=== PATIENT | female | born 1960 | race African-American/Black ===

== ENCOUNTER → 2017-01-18 | Outpatient (CLI) | payer OTHER ==
[2014-09-04 22:30] VITALS: BP 108/60
[~2017-01-18] MED LIST: ALBU8.5H6 IH; CALC600T4 PO; CHOL200044 PO; MULT-246 PO; other
--- NOTE | 2017-01-19 11:31 | KCIC ---
DATE: 01/18/2017 EXAM: DIGITAL DIAGNOSTIC RT, BREAST RIGHT HISTORY: Right breast thickening COMPARISON: 06/03/2016 FINDINGS: Breast Density: SCATTERED The breast parenchyma shows scattered fibroglandular densities. Breast parenchyma level B. There are no dominant suspicious masses, suspicious microcalcifications or evidence of architectural distortion. Targeted ultrasound the right breast demonstrates a 1.3 cm echogenicity at the 4 :00 position 9 cm of the nipple without vascular flow. IMPRESSION: 1.3 cm echogenicity identified 4:00 position 9 cm from the nipple without vascular flow probably scarring, however this is not clearly visualized on the mammogram. Probably benign findings. BI-RADS CATEGORY: 3 PROBABLE BENIGN-SHORT TERM F/U RECOMMENDED FOLLOW-UP: Ultrasound in 6 months PQRS compliance statement: Patient information was entered into a reminder system with a target due date 07/20/2017 for the next mammogram. Mammography is a sensitive method for finding small breast cancers, but it does not detect them all and is not a substitute for careful clinical examination. A negative mammogram does not negate a clinically suspicious finding and should not result in delay in biopsying a clinically suspicious abnormality. "Our facility is accredited by the [employer] Mammography Program." ISREALD
== END | disposition home or self-care (01) ==
LOC: KCIC MAMMO 09:59
PROVIDERS: ATTEND Obstetrics & Gynecology
DX: R92.8 Other abnormal and inconclusive findings on diagnostic imaging of breast (principal)
CPT/HCPCS: 76641; G0206; 77065

== ENCOUNTER → 2017-03-17 | Outpatient (CLI) | payer OTHER ==
[2014-09-04 22:30] VITALS: BP 108/60
[~2017-03-17] MED LIST changes: +REGADENOSON 0.4 MG/5 ML DISP.SYRIN. IV ONE
--- NOTE | 2017-03-18 12:39 | RAD ---
APPROVED REPORT Test Type: Pharmacological Stress Nurse/Tech: Luanne Champagne R.N. Test Indications: exertional dyspnea Cardiac History: Family history, Hypertension Medications: See Electronic Medical Record Medical History: See Electronic Medical Record Resting ECG: NSR Resting Heart Rate: 67 bpm Resting Blood Pressure: 133/75mmHg Pretest Chest Pain: No chest pain Nurse/Tech Notes S1S2, lungs sound clear Consent: The procedure was explained to the patient in lay terms. Informed consent was witnessed. Pérez eout was entered into [employer]. History and Stress Test performed by Luanne Champagne R.N. Pharm. Details Pharmacologic stress testing was performed using 0.4mg per 5ml of regadenoson given intravenously ove r 7-10 seconds. Stress Symptoms Dyspnea POST EXERCISE Reason for Termination: Infusion complete Max HR: 101 bpm Max Blood Pressure: 137/66mmHg Blood Pressure response to exercise: Normal blood pressure response during stress. Chest Pain: No. Arrhythmia: Yes. occ PVC ST Change: No. INTERPRETATION Stress EKG Conclusion: Baseline EKG showed sinus rhythm. No ischemic changes at peak stress. No arr hythmias. Imaging Protocol IMAGE PROTOCOL: Rest Tc-99m/stress Tc-99m 2 days Rest: Stress: Viability: Radiopharm.Tc99m IakjqjvjoEw70f Sestamibi Dose33.4mCi 32mCi Img Date 03/17/2017 03/18/2017 Rest Admin Site:IV - Right AntecubitalAdministrator:PAVEL Castillo Stress Admin Site: IV - Right AntecubitalAdministrator: Ross Orozco, RT (R)(N) STRESS DATA End Diast. Vol.110.0mlAv. Heart Rate74.0bpm End Syst. Vol.34.0mlCO Index BSA0.0L/min Myocardial Bggv235.0gEject. Jbmanggs18.0% Stress Rates Pk. Fill Rate3.09EDV/secLVtime Pk. Fill 210.33msec Pk. Empty Rate3.21ESV/secLVtime Pk. Uluvc290.17msec 08/03 Pk. Fill1.45EDV/sec Stress Scores Regional WT0.00Summed WT0.00 Regional WM0.00Summed WM1.00 Study quality was good. Left Ventricular size was Normal at Rest and Stress. Lung uptake was Normal. Left Ventricular ejection fraction is 69%. The rest and stress images show normal perfusion, normal contraction and thickening. LV Perf. Quant 17 Seg. SSS1.00 17 Seg. SRS0.00 17 Seg. SDS1.00 Stress Defect Extent (% LAD)0.00Rest Defect Extent (% LAD)0.00Rev. Defect Extent (% LAD)0.00 Stress Defect Extent (% LCX) 0.00Rest Defect Extent (% LCX)0.00Rev. Defect Extent (% LCX)0.00 Stress Defect Extent (% RCA)0.00Rest Defect Extent (% RCA)0.00Rev. Defect Extent (% RCA)0.00 Stress Defect Extent (% WALT)0.00Rest Defect Extent (% WALT)0.00Rev. Defect Extent (% WALT)0.00 Conclusion 1. Regadenoson cardioisotope stress test did not show any evidence of ischemia or infarct. 2. Normal left ventricular systolic function with ejection fraction calculated at 69%. 3. Low risk for cardiac events.
--- NOTE | 2017-03-18 12:49 | CARD ---
APPROVED REPORT EXAM: Two-dimensional and M-mode echocardiogram with Doppler and color Doppler. Other Information Quality : Good INDICATION Dyspnea 2D DIMENSIONS RVDd2.2 (2.9-3.5cm)Left Atrium(2D)3.0 (1.6-4.0cm) IVSd1.1 (0.7-1.1cm)Aortic Root(2D)2.9 (2.0-3.7cm) LVDd4.7 (3.9-5.9cm)LVOT Diameter2.2 (1.8-2.4cm) PWd1.1 (0.7-1.1cm)LVDs2.9 (2.5-4.0cm) FS (%) 30.0 %SV70.8 ml LVEF(%)60.0 (>50%) Aortic Valve AoV Peak King.149.6cm/sAoV VTI33.7cm AO Peak GR.9.0mmHgLVOT Peak King.105.3cm/s AO Mean GR.5mmHgAVA (VMAX)2.59cm2 SCAR (VTI)2.70cm2 Mitral Valve MV E Ddzqitxh36.4cm/sMV DECEL KECS670nz MV A Pibbeizk14.7cm/sE/A Ratio0.9 Tricuspid Valve TR P. Jyxyijsr122zu/sRAP JEFNRLQW9fkCm TR Peak Gr.27irItDCXF46qcEe Pulmonary Vein S1 Mmbazata97.6cm/sD2 Sudzxibp90.7cm/s LEFT VENTRICLE The left ventricle is normal size. There is normal left ventricular wall thickness. The left ventricu lar systolic function is normal. The Ejection Fraction is 55-60%. There is normal LV segmental wall m otion. Transmitral Doppler flow pattern is Grade I-abnormal relaxation pattern. RIGHT VENTRICLE The right ventricle is normal size. The right ventricular systolic function is normal. ATRIA The left atrium size is normal. The right atrium size is normal. There is a small PFO noted on Dopple r imaging, agitated contrast saline was not performed on this study. AORTIC VALVE The aortic valve is calcified but opens well. Doppler and Color Flow revealed no significant aortic r egurgitation. There is no significant aortic valvular stenosis. MITRAL VALVE The mitral valve is calcified but opens well. There is no evidence of mitral valve prolapse. There is no mitral valve stenosis. Doppler and Color-flow revealed trace mitral regurgitation. TRICUSPID VALVE The tricuspid valve is normal in structure and function. Doppler and Color Flow revealed physiologica l tricuspid regurgitation. The PA pressure was estimated at 15 mmHg. There is no tricuspid valve sten osis. PULMONIC VALVE The pulmonary valve is normal in structure and function. Doppler and Color Flow revealed trace pulmon ic valvular regurgitation. There is no pulmonic valvular stenosis. GREAT VESSELS The aortic root is normal in size. The ascending aorta is normal in size. The IVC is normal in size a nd collapses >50% with inspiration. PERICARDIAL EFFUSION There is no evidence of significant pericardial effusion. Critical Notification Critical Value: No <Conclusion> The left ventricular systolic function is normal. The Ejection Fraction is 55-60%. There is normal LV segmental wall motion. Doppler and Color-flow revealed trace mitral regurgitation. There is no evidence of significant pericardial effusion.
--- NOTE | 2017-03-18 14:28 | RAD ---
APPROVED REPORT Patient Location : OUT-PATIENT Indications Lower Extremity Edema : Bilateral Perforators Thigh Perforators Calf Perforators Right: cm up from medial heel 35cm back from the anterior border of tibia 12 diameter 0.4 CMmm. Findings The left great saphenous vein measures approximately 5 mm and has a reflux time of 2 seconds. The lef t lesser saphenous vein does not show any evidence of reflux. The right great saphenous vein measures approximately 5.5 mm and has a reflux time of 1.4 seconds. Th e right lesser saphenous vein does not show any evidence of reflux. There is one calf supervisor film processing note d on the right side at approximately 35 cm up and 12 cm back. Of note, quantitatively there is more reflux on the left leg compared to the right although the perfo rators noted on the right side. Critical Notification Critical Value: No <Conclusion> 1.Positive for bilateral great saphenous vein reflux.
== END | disposition home or self-care (01) ==
LOC: NM 08:16
PROVIDERS: ATTEND Internal Medicine Cardiovascular Disease
DX: I07.1 Rheumatic tricuspid insufficiency (principal); R06.09 Other forms of dyspnea; R60.0 Localized edema
CPT/HCPCS: 78452; 96374; 96375; A9500; 93017; 93306; 93970; 96376; J2785

== ENCOUNTER → 2017-07-27 | Outpatient (CLI) | payer OTHER ==
[2014-09-04 22:30] VITALS: BP 108/60
[~2017-07-27] MED LIST changes: -REGADENOSON 0.4 MG/5 ML DISP.SYRIN. IV ONE
--- NOTE | 2017-07-27 14:03 | KCIC ---
Bilateral digital diagnostic mammogram, limited right breast ultrasound History: 57 year-old female returns for short-term follow-up of a probably benign finding in the right breast, originally palpated on previous clinical breast exam. Patient has no current breast concerns other than occasional pain which has improved. Comparison: January 18, 2017, June 03, 2016 Findings: Breast Tissue Density A : The breasts are almost entirely fatty. Bilateral digital mammogram images are obtained with CAD. No suspicious masses, architectural distortion, or grouped microcalcifications are identified. Targeted sonography of the right breast is performed, with radial and antiradial images obtained of the previous area of concern. In the 4:00 position 9 cm from the nipple, no suspicious solid or cystic mass is seen. Normal tissue planes are maintained. Previously seen area of hyperechogenicity is not seen on today's exam. Impression: No suspicious mammographic or sonographic findings. Recommend bilateral screening mammography in one year. Findings and recommendation were relayed to the patient by the cath lab radiological technologist. BI-RADS Category 1: Negative. Patient information was entered into a reminder system with a target due date for the next mammogram. Electronically signed by: Lorraine Dowell MD (07/27/2017 1:59 PM) [id number]
--- NOTE | 2017-07-27 14:03 | KCIC ---
Bilateral digital diagnostic mammogram, limited right breast ultrasound History: 57 year-old female returns for short-term follow-up of a probably benign finding in the right breast, originally palpated on previous clinical breast exam. Patient has no current breast concerns other than occasional pain which has improved. Comparison: January 18, 2017, June 03, 2016 Findings: Breast Tissue Density A : The breasts are almost entirely fatty. Bilateral digital mammogram images are obtained with CAD. No suspicious masses, architectural distortion, or grouped microcalcifications are identified. Targeted sonography of the right breast is performed, with radial and antiradial images obtained of the previous area of concern. In the 4:00 position 9 cm from the nipple, no suspicious solid or cystic mass is seen. Normal tissue planes are maintained. Previously seen area of hyperechogenicity is not seen on today's exam. Impression: No suspicious mammographic or sonographic findings. Recommend bilateral screening mammography in one year. Findings and recommendation were relayed to the patient by the office technologist. BI-RADS Category 1: Negative. Patient information was entered into a reminder system with a target due date for the next mammogram. Electronically signed by: Lorraine Dowell MD (07/27/2017 1:59 PM) [facility]
--- NOTE | 2017-07-27 14:06 | KCIC ---
CHEST PA LATERAL History: Endometrial cancer 2015. Sinus drainage. Comparison: Two-view chest June 21, 2016. Findings: The cardiomediastinal silhouette is normal. Bilateral hilar prominence is unchanged. Minimal scarring or discoid atelectasis in the peripheral left lower lung is stable. Mild atelectasis or scarring in the right lower lobe is unchanged allowing for differences in inspiration. No pleural effusion or pneumothorax is seen. There is no acute bone abnormality. IMPRESSION: Unchanged atelectasis or scarring in the right lower lobe and the peripheral left lower lung. Electronically signed by: Rl Singleton MD (07/27/2017 2:03 PM) [id number]
== END | disposition home or self-care (01) ==
LOC: KCIC MAMMO 13:09
PROVIDERS: ATTEND Obstetrics & Gynecology
DX: C54.1 Malignant neoplasm of endometrium (principal); N64.4 Mastodynia; J98.11 Atelectasis; J98.4 Other disorders of lung
CPT/HCPCS: 71020; 76641; G0204; 77066

== ENCOUNTER → 2018-07-31 | Outpatient (CLI) | payer OTHER ==
[2014-09-04 22:30] VITALS: BP 108/60
--- NOTE | 2018-07-31 16:07 | KCIC ---
EXAM: PA and Lateral Views of the Chest DATE: 07/31/2018 3:30 PM INDICATION: OVARIAN CANCER COMPARISON: 07/27/17 FINDINGS: The heart is not enlarged. Mild right suprahilar opacities is now seen, this can be further assessed by CT. Linear opacities in the bilateral lung bases likely atelectasis/scarring. No lobar consolidation. No pleural effusion or pneumothorax. IMPRESSION: 1. Prominent right suprahilar opacity is now seen, this can be further assessed by CT. 2. Linear opacities in the bilateral lung bases likely atelectasis/scarring. No lobar consolidation. Electronically signed by: Carlos Eduardo Raymond MD (07/31/2018 4:03 PM) [facility]
--- NOTE | 2018-08-02 09:42 | KCIC ---
History: Routine screening. Technique: Bilateral digital mammographic routine views were obtained with CAD - computer aided detection. Comparison: July 27, 2017. Findings: Breast Tissue Density B :The breast tissue is composed of mixed fatty and fibroglandular tissue. There are no suspicious masses, microcalcifications or areas of architectural distortion. Impression: Negative mammogram. BI-RADS Category 1: Negative. Normal interval followup. A mammogram does not have 100% sensitivity and therefore a negative imaging study should not delay further work up of a suspicious abnormality. The patient will receive a letter with the results in the mail. Patient information is entered into the reminder system with a target due date for the next screening mammogram. The patient will receive a reminder. "Our facility is accredited by the [employer] Mammography Program." Electronically signed by: Javi Andrews III, MD (08/02/2018 9:38 AM) [facility]
== END | disposition home or self-care (01) ==
LOC: KCIC MAMMO 14:43
PROVIDERS: ATTEND Obstetrics & Gynecology
DX: Z12.31 Encounter for screening mammogram for malignant neoplasm of breast (principal); R91.8 Other nonspecific abnormal finding of lung field; Z85.43 Personal history of malignant neoplasm of ovary
CPT/HCPCS: 71046; 77067

== ENCOUNTER → 2018-10-04 | Outpatient (CLI) | payer OTHER ==
[2014-09-04 22:30] VITALS: BP 108/60
[~2018-10-04] MED LIST changes: +IOHEXOL 300 MG/ML 100ML VIAL. IV ONE
--- NOTE | 2018-10-04 13:34 | KCIC ---
PQRS Compliance statement: One or more of the following individualized dose reduction techniques were utilized for this examination: 1. Automated exposure control. 2. Adjustment of the mA and/or kV according to patient size. 3. Use of iterative reconstruction technique. Indication:Lung nodule. History of uterine cancer. TECHNIQUE: CT chest with IV contrast with multiplanar reformats. COMPARISON:None FINDINGS: Heart is normal in size. No pericardial or effusion. Clear neck base. No enlarged axillary, mediastinal or hilar adenopathy. Central airways are patent. Scarring or subsegmental atelectasis seen in the bilateral lung bases and in the right middle lobe. 3 mm nodular opacity abutting the right major fissure (series 2 image 72). Visualized sections through the liver, spleen, pancreas, adrenals and kidneys within normal limits. Status post cholecystectomy. No suspicious bony lesion. IMPRESSION: 1. Scattered subsegmental atelectasis or scarring. 2. Solitary 3 mm nodular opacity adjacent to the right major fissure. According to Fleischner side recommendation, no further follow-up needed. Future follow-up depending on patient's risk factors. Electronically signed by: Christo Field DO (10/04/2018 1:31 PM) [id number]
== END | disposition home or self-care (01) ==
LOC: KCIC CT 12:22
PROVIDERS: ATTEND Internal Medicine Pulmonary Disease
DX: R91.1 Solitary pulmonary nodule (principal); Z90.49 Acquired absence of other specified parts of digestive tract; Z85.42 Personal history of malignant neoplasm of other parts of uterus
CPT/HCPCS: 71260; Q9967

== ENCOUNTER → 2019-03-01 | Outpatient (CLI) | payer OTHER ==
[2014-09-04 22:30] VITALS: BP 108/60
[~2019-03-01] MED LIST changes: -IOHEXOL 300 MG/ML 100ML VIAL. IV ONE
--- NOTE | 2019-03-01 20:25 | KCIC ---
Left breast ultrasound: Reason for examination: Left breast pain at the 3:00 position. Comparison is made to mammographic exam dated 07/31/2018. Ultrasound examination of the left breast was performed with attention to the lateral breast. No discrete cystic or solid nodules are seen within the predominantly fatty parenchyma. No abnormal appearing lymph nodes are seen in the axilla. IMPRESSION: No focal abnormalities evident in the left breast. Recommend routine mammographic follow-up. BI-RADS Category 1: Negative. "Our facility is accredited by the [employer] Mammography Program." This patient's information has been entered into a reminder system for the patient to be notified with the results of her examination and a target date for the next mammogram. Electronically signed by: Paula Mark MD (03/01/2019 8:22 PM) [facility]
== END | disposition home or self-care (01) ==
LOC: KCIC US 12:57
PROVIDERS: ATTEND Obstetrics & Gynecology
DX: N64.4 Mastodynia (principal)
CPT/HCPCS: 76641

== ENCOUNTER → 2019-06-20 | Outpatient (CLI) | payer OTHER ==
[2014-09-04 22:30] VITALS: BP 108/60
--- NOTE | 2019-06-20 15:27 | CARD ---
MR#: [id number] Date of Study: 06/20/2019 Ordering Physician: SAYRA CLEANING, Referring Physician: Da VEE: Jessi Carreno APPROVED REPORT EXAM: Two-dimensional and M-mode echocardiogram with Doppler and color Doppler. Other Information Quality : AverageHR: 93bpm INDICATION Hypertension/HCVD 2D DIMENSIONS RVDd2.1 (2.9-3.5cm)Left Atrium(2D)3.4 (1.6-4.0cm) IVSd0.8 (0.7-1.1cm)Aortic Root(2D)2.6 (2.0-3.7cm) LVDd4.3 (3.9-5.9cm)LVOT Diameter2.1 (1.8-2.4cm) PWd0.7 (0.7-1.1cm)LVDs3.2 (2.5-4.0cm) FS (%) 25.3 %SV42.7 ml LVEF(%)50.2 (>50%) Aortic Valve AoV Peak King.181.7cm/sAoV VTI34.9cm AO Peak GR.13.2mmHgLVOT Peak King.106.1cm/s LVOT VTI 23.42cmAO Mean GR.8mmHg SCAR (VMAX)1.67nb6INN (VTI)2.26cm2 Mitral Valve MV E Enemsdsj39.6cm/sMV DECEL JMAQ444vd MV A Pumfbfhd38.0cm/sMV MSJ16ko E/A Ratio0.7MVA (PHT)3.13cm2 TDI E/Lateral E'8.8E/Medial E'10.3 Pulmonary Valve PV Peak Eubglesw731.9cm/sPV Peak Grad.5mmHg Tricuspid Valve TR P. Ynnwusrg864ej/sRAP PBZEQLXZ8bxRd TR Peak Gr.18myVkDCXD16fwYh Pulmonary Vein S1 Ehyzkcxv93.3cm/sD2 Wbsjpncw56.4cm/s PVa ogxpoajz891kkaj LEFT VENTRICLE The left ventricle is normal size. There is normal left ventricular wall thickness. The left ventricu lar systolic function is normal. The Ejection Fraction is 55-60%. There is normal LV segmental wall m otion. Transmitral Doppler flow pattern is Grade I-abnormal relaxation pattern. RIGHT VENTRICLE The right ventricle cavity is small. The right ventricular systolic function is normal. ATRIA The left atrium size is normal. The right atrium is borderline dilated. Eustachian valve is noted in the right atrium. The interatrial septum is mildly aneurysmal without flow across with color. AORTIC VALVE The aortic valve is thickened but opens well. Doppler and Color Flow revealed no significant aortic r egurgitation. There is no significant aortic valvular stenosis. MITRAL VALVE The mitral valve is thickened but opens well. There is no evidence of mitral valve prolapse. There is no mitral valve stenosis. Doppler and Color-flow revealed trace mitral regurgitation. TRICUSPID VALVE The tricuspid valve is normal in structure and function. Doppler and Color Flow revealed mild tricusp id regurgitation with an estimated PAP of 36 mmHg. There is no tricuspid valve stenosis. PULMONIC VALVE The pulmonary valve is normal in structure and function. Doppler and Color Flow revealed no pulmonic valvular regurgitation. GREAT VESSELS The aortic root is normal in size. The ascending aorta is normal in size. The IVC is dilated and aleisha apses >50% with inspiration. PERICARDIAL EFFUSION There is no pleural effusion. There is no evidence of significant pericardial effusion. Critical Notification Critical Value: No <Conclusion> The left ventricular systolic function is normal. The Ejection Fraction is 55-60%. There is normal LV segmental wall motion. Transmitral Doppler flow pattern is Grade I-abnormal relaxation pattern. Trace mitral regurgitation. Mild tricuspid regurgitation with an estimated PAP of 36 mmHg. There is no evidence of significant pericardial effusion. Signed by : Sayra Cleaning, Electronically Approved : 06/20/2019 15:26:50
== END | disposition home or self-care (01) ==
LOC: ECHO 14:10
PROVIDERS: ATTEND Internal Medicine Cardiovascular Disease
DX: I07.1 Rheumatic tricuspid insufficiency (principal); I10 Essential (primary) hypertension
CPT/HCPCS: 93306

== ENCOUNTER → 2019-08-08 | Outpatient (CLI) | payer OTHER ==
[2014-09-04 22:30] VITALS: BP 108/60
--- NOTE | 2019-08-08 12:04 | KCIC ---
Bilateral digital screening mammograms: Reason for examination: Routine screening. History of bilateral breast reduction. Flores and scars on right breast. Comparison is made to previous studies dated 07/31/2018 and 07/27/2017. Interpretation is made with the benefit of CAD. The skin and nipples show no abnormalities. No abnormal lymph nodes are seen. The breast parenchyma is predominantly fatty. (Breast density: Category A.) There are no dominant masses, suspicious calcifications or architectural distortions. A few benign calcifications are seen. Impression: No evidence of malignancy. Recommend routine screening. BI-RADS Category 2: Benign. "Our facility is accredited by the [employer] Mammography Program." This patient's information has been entered into a reminder system for the patient to be notified with the results of her examination and a target date for the next mammogram. Electronically signed by: Paula Mark MD (08/08/2019 12:01 PM) [facility]
== END | disposition home or self-care (01) ==
LOC: KCIC MAMMO 09:55
PROVIDERS: ATTEND Obstetrics & Gynecology
DX: Z12.31 Encounter for screening mammogram for malignant neoplasm of breast (principal); N64.89 Other specified disorders of breast
CPT/HCPCS: 77067

== ENCOUNTER → 2019-09-07 | Outpatient (CLI) | payer OTHER ==
[2014-09-04 22:30] VITALS: BP 108/60
--- NOTE | 2019-09-07 10:36 | KCIC ---
Chest radiograph 09/07/2019 12:00 AM INDICATION: Endometrial cancer COMPARISON: CT chest 10/04/2018, chest radiograph 07/31/2018 TECHNIQUE: Frontal and lateral views of the chest are provided. FINDINGS: The cardiomediastinal silhouette is within normal limits. There are no pleural effusions. There is no pulmonary vascular congestion. There is no pneumothorax. Mild interstitial changes are noted at the lung bases bilaterally. No suspicious solid noncalcified pulmonary nodule identified. No significant osseous abnormality is identified. IMPRESSION: Mild bibasilar interstitial changes may represent subsegmental atelectasis versus scarring. No suspicious pulmonary mass is visualized. Electronically signed by: Jing Mabry MD (09/07/2019 10:33 AM) [id number]
== END | disposition home or self-care (01) ==
LOC: KCIC 09:56
PROVIDERS: ATTEND Obstetrics & Gynecology
DX: Z08 Encounter for follow-up examination after completed treatment for malignant neoplasm (principal); Z85.42 Personal history of malignant neoplasm of other parts of uterus
CPT/HCPCS: 71046

== ENCOUNTER → 2020-08-13 | Outpatient (CLI) | payer OTHER ==
[2014-09-04 22:30] VITALS: BP 108/60
[~2020-08-13] MED LIST changes: -CALC600T4 PO; +CALC600T60 PO
--- NOTE | 2020-08-13 14:53 | CARD ---
MR#: [id number] Date of Study: 08/13/2020 Ordering Physician: SAYRA AKINS, Referring Physician: SAYRA AKINS Tech: Stephie Quinones RDCS APPROVED REPORT EXAM: Two-dimensional and M-mode echocardiogram with Doppler and color Doppler. Other Information Quality : Good INDICATION Hypertension/HCVD 2D DIMENSIONS RVDd2.4 (2.9-3.5cm)Left Atrium(2D)3.2 (1.6-4.0cm) IVSd0.9 (0.7-1.1cm)Aortic Root(2D)2.2 (2.0-3.7cm) LVDd4.4 (3.9-5.9cm)LVOT Diameter2.2 (1.8-2.4cm) PWd1.1 (0.7-1.1cm)LVDs3.2 (2.5-4.0cm) FS (%) 27.0 %SV45.7 ml LVEF(%)52.9 (>50%) Aortic Valve AoV Peak King.161.5cm/sAoV VTI34.6cm AO Peak GR.10.4mmHgLVOT Peak King.111.0cm/s AO Mean GR.6mmHgAVA (VMAX)2.60cm2 SCAR (VTI)2.70cm2 Mitral Valve MV E Stewrben82.3cm/sMV DECEL BEVE381ae MV A Xcnkncsm70.0cm/sE/A Ratio0.9 Tricuspid Valve TR P. Ojgzuixd905kj/sRAP GICFFEBA51bvGy TR Peak Gr.08fdVzYIDQ44gxVo Pulmonary Vein S1 Zwlhzgoa57.0cm/sD2 Xtlvigci32.8cm/s LEFT VENTRICLE The left ventricle is normal size. There is mild to moderate concentric left ventricular hypertrophy. Left ventricle systolic function is low normal. The Ejection Fraction is 50-55%. There is normal LV segmental wall motion. Transmitral Doppler flow pattern is Grade I-abnormal relaxation pattern. RIGHT VENTRICLE The right ventricle is normal size. The right ventricular systolic function is normal. ATRIA The left atrium is moderately dilated. The right atrium is mildly dilated. Cannot rule out small atri al level defect on color doppler imaging. Consider further evaluation based on clinical indication. AORTIC VALVE The aortic valve is calcified but opens well. Doppler and Color Flow revealed trace aortic regurgitat ion. There is no significant aortic valvular stenosis. MITRAL VALVE The mitral valve is calcified but opens well. Mitral annular calcification is mild. There is no evide nce of mitral valve prolapse. There is no mitral valve stenosis. Doppler and Color-flow revealed mild mitral regurgitation. TRICUSPID VALVE The tricuspid valve is normal in structure and function. Doppler and Color Flow revealed mild tricusp id regurgitation. There is moderate-severe pulmonary hypertension. The PA pressure was estimated at 6 0 mmHg. There is no tricuspid valve stenosis. PULMONIC VALVE The pulmonic valve is not well visualized. Doppler and Color Flow revealed trace pulmonic valvular re gurgitation. There is no pulmonic valvular stenosis. GREAT VESSELS The aortic root is normal in size. The ascending aorta is not well seen. The IVC is dilated and colla pses <50% with inspiration. PERICARDIAL EFFUSION There is no evidence of significant pericardial effusion. Critical Notification Critical Value: No <Conclusion> Left ventricle systolic function is low normal. The Ejection Fraction is 50-55%. There is normal LV segmental wall motion. Cannot rule out small atrial level defect on color doppler imaging. Consider further evaluation based on clinical indication. Doppler and Color Flow revealed mild tricuspid regurgitation. There is moderate-severe pulmonary hype rtension. The PA pressure was estimated at 60 mmHg. The IVC is dilated and collapses <50% with inspiration suggestive of right sided volume overload. Signed by : [place], Electronically Approved : 08/13/2020 14:52:40
== END ==
LOC: ECHO 13:10
PROVIDERS: ATTEND Internal Medicine Cardiovascular Disease
DX: I08.3 Combined rheumatic disorders of mitral, aortic and tricuspid valves (principal); I11.9 Hypertensive heart disease without heart failure
CPT/HCPCS: 93306

== ENCOUNTER → 2020-09-15 | Outpatient (CLI) | payer OTHER ==
[2014-09-04 22:30] VITALS: BP 108/60
[~2020-09-15] MED LIST changes: +CALC600T6 PO; -CALC600T60 PO
--- NOTE | 2020-09-15 14:12 | KCIC ---
Bilateral digital screening mammograms: Reason for examination: Routine screening. Comparison is made to previous studies dated 08/08/2019 and 07/31/2018. Interpretation was made with the benefit of CAD. The skin and nipples show no abnormalities. No abnormal lymph nodes are seen. The breast parenchyma i s predominantly fatty. (Breast density: Category A.) There are no dominant masses, suspicious calcifi cations or architectural distortions. A few benign calcifications are again seen. Impression: No evidence of malignancy. Recommend routine screening. BI-RADS Category 2: Benign. "Our facility is accredited by the [employer] Mammography [employer]." This patient's information has been entered into a reminder system for the patient to be notified wit h the results of her examination and a target date for the next mammogram. Electronically signed by: Paula Mark MD (09/15/2020 2:09 PM) [email or web address]
--- NOTE | 2020-09-15 15:36 | KCIC ---
EXAM: Chest, 2 views. HISTORY: Ovarian cancer. COMPARISON: 09/07/2019 FINDINGS: 2 views of the chest are obtained. There are stable bilateral linear infrahilar opacity lik hao due to atelectasis or scarring. There is no consolidation, pleural effusion or pneumothorax. Ther e is a stable cardiac silhouette. There is stable right apical pleural thickening likely due to scarr ing. IMPRESSION: No acute pulmonary finding. Electronically signed by: Cynthia Medeiros MD (09/15/2020 3:14 PM) [id number]
== END ==
LOC: KCIC MAMMO 13:06
PROVIDERS: ATTEND Obstetrics & Gynecology
DX: Z12.31 Encounter for screening mammogram for malignant neoplasm of breast (principal); Z85.43 Personal history of malignant neoplasm of ovary
CPT/HCPCS: 71046; 77067

== ENCOUNTER → 2021-08-19 | Outpatient (CLI) | payer OTHER ==
[2014-09-04 22:30] VITALS: BP 108/60
[~2021-08-19] MED LIST changes: -CALC600T6 PO; +CALC600T60 PO
--- NOTE | 2021-08-21 12:42 | CARD ---
MR#: [id number] Date of Study: 08/19/2021 Ordering Physician: SAYRA AKINS, Referring Physician: SAYRA AKINS Tech: Serene Gray [facility] APPROVED REPORT EXAM: Two-dimensional and M-mode echocardiogram with Doppler and color Doppler. Other Information Quality : Technically LimitedHR: 94bpm Rhythm : NSR INDICATION Murmur RISK FACTORS Hypertension Obesity Diabetes 2D DIMENSIONS Left Atrium(2D)3.0 (1.6-4.0cm)IVSd1.1 (0.7-1.1cm) Aortic Root(2D)3.0 (2.0-3.7cm)LVDd4.3 (3.9-5.9cm) LVOT Diameter2.1 (1.8-2.4cm)PWd1.1 (0.7-1.1cm) LVDs2.9 (2.5-4.0cm)FS (%) 31.1 % SV48.2 ml Aortic Valve AoV Peak King.163.4cm/sAoV VTI31.7cm AO Peak GR.10.7mmHgLVOT Peak King.119.6cm/s AO Mean GR.5mmHgAVA (VMAX)2.60cm2 Tricuspid Valve TR P. Sylrvhwo422je/sTR Peak Gr.35mmHg LEFT VENTRICLE The Left Ventricle is mildly dilated. There is mild concentric left ventricular hypertrophy. The left ventricular systolic function is low normal. LV ejection fraction estimated at 50%. There are no re gional wall motion abnormalities present. Transmitral Doppler flow pattern is Grade I-abnormal relaxa tion pattern. RIGHT VENTRICLE The right ventricle is normal size. There is normal right ventricular wall thickness. The right ventr icular systolic function is normal. ATRIA The left atrium size is normal. The right atrium size is normal. The interatrial septum is intact wit h no evidence for an atrial septal defect or patent foramen ovale as noted on 2-D or Doppler imaging. Normal bubble study. AORTIC VALVE The aortic valve is normal in structure and function. Doppler and Color Flow revealed no significant aortic regurgitation. There is no significant aortic valvular stenosis. MITRAL VALVE The mitral valve is normal in structure and function. There is no evidence of mitral valve prolapse. There is no mitral valve stenosis. Doppler and Color-flow revealed trace mitral regurgitation. TRICUSPID VALVE The tricuspid valve is normal in structure and function. Doppler and Color Flow revealed trace to mil d tricuspid regurgitation. Estimated PAP 38-40 mmHg. There is no tricuspid valve stenosis. PULMONIC VALVE The pulmonary valve is normal in structure and function. Doppler and Color Flow revealed no pulmonic valvular regurgitation. GREAT VESSELS The aortic root is normal in size. The ascending aorta is normal in size. The IVC is normal in size a nd collapses >50% with inspiration. PERICARDIAL EFFUSION There is no evidence of significant pericardial effusion. Critical Notification Critical Value: No <Conclusion> The Left Ventricle is mildly dilated. The left ventricular systolic function is low normal. LV ejection fraction estimated at 50%. There are no regional wall motion abnormalities present. There is mild concentric left ventricular hypertrophy. The interatrial septum is intact with no evidence for an atrial septal defect or patent foramen ovale as noted on 2-D or Doppler imaging. Normal bubble study. Doppler and Color Flow revealed no significant aortic regurgitation. There is no significant aortic valvular stenosis. Doppler and Color-flow revealed trace mitral regurgitation. Doppler and Color Flow revealed trace to mild tricuspid regurgitation. Estimated PAP 38-40 mmHg. Signed by : Judd Hunter MD Electronically Approved : 08/21/2021 12:41:30
== END ==
LOC: ECHO 15:48
PROVIDERS: ATTEND Internal Medicine Cardiovascular Disease
DX: I07.1 Rheumatic tricuspid insufficiency (principal); R06.00 Dyspnea, unspecified; R01.1 Cardiac murmur, unspecified
CPT/HCPCS: 93306; C8929

== ENCOUNTER → 2021-10-28 | Outpatient (CLI) | payer OTHER ==
[2014-09-04 22:30] VITALS: BP 108/60
--- NOTE | 2021-10-28 16:08 | KCIC ---
Bilateral diagnostic digital mammograms: Reason for examination: Right areolar pain and left lateral breast pain. Comparison is made to previous studies dated back to 07/27/2017. Interpretation is made with the benefit of CAD. The skin and nipples show no abnormalities. No abnormal lymph nodes are seen. The breast parenchyma i s predominantly fatty. (Breast density: Category A.) There are no dominant masses, suspicious calcifi cations or architectural distortions. Impression: No evidence of malignancy. Recommend routine screening. BI-RADS Category 1: Negative. "Our facility is accredited by the [employer] Mammography Program." This patient's information has been entered into a reminder system for the patient to be notified wit h the results of her examination and a target date for the next mammogram. Electronically signed by: Paula Mark MD (10/28/2021 4:06 PM) [email or web address]
--- NOTE | 2021-10-28 17:15 | KCIC ---
XR CHEST 2V INDICATION: YEARLY CHECK-UP, HX. OVARIAN CA, NO CHEST COMPLAINTS . COMPARISON STUDY: 09/15/2020. FINDINGS: Lungs: Normal lung volume. Stable bibasilar linear opacities, likely subsegmental atelectasis. No con solidation. Pleura: No pleural effusion or pneumothorax. Heart and Mediastinum: The cardiomediastinal silhouette is normal. Mild tortuosity of the thoracic ao rta. Bones and Soft Tissues: Degenerative changes of the spine. IMPRESSION: Stable bibasilar linear opacities, likely subsegmental atelectasis. No consolidation. Electronically signed by: Andre Cheung MD (10/28/2021 5:12 PM) [id number]
== END ==
LOC: KCIC MAMMO 12:34
PROVIDERS: ATTEND Obstetrics & Gynecology
DX: R91.8 Other nonspecific abnormal finding of lung field (principal); Q25.46 Tortuous aortic arch; N64.4 Mastodynia; M47.819 Spondylosis without myelopathy or radiculopathy, site unspecified
CPT/HCPCS: 71046; 77066